=== PATIENT | male | born 1970 | race Caucasian/White ===

== ENCOUNTER 2016-07-26 12:25 | Emergency (ER) | payer SELFPAY ==
[2016-07-26 11:58] LABS: BASOPHILS 0.3 %; BASOPHILS ABSOLUTE 0.04 10/3/uL (0.0-0.16); EOSINOPHILS ABSOLUTE 0.38 10/3/uL (0.0-0.53); HEMATOCRIT 43.8 % (40.0-51.0); HEMOGLOBIN 14.9 g/dL (13.6-17.8); IMMATURE GRANULOCYTES 0.2 %; IMMATURE GRANULOCYTES ABSOLUTE 0.03 10/3/uL (0.0-0.11); LYMPHOCYTES 18.4 %; MANUAL DIFF NO %; MEAN CORPUSCULAR HEMOGLOB 29.3 pg (26.0-34.0); MEAN CORPUSCULAR VOLUME 86.2 fL (80-100); MEAN PLATELET VOLUME 9.3 fL (9.2-13.0); MONOCYTES 5.4 %; MONOCYTES ABSOLUTE 0.68 10/3/uL (0.21-1.20); NEUTROPHILS 72.7 %; NEUTROPHILS ABSOLUTE 9.08 10/3/uL (2.02-8.40); PLATELET COUNT 224 10/3/uL (150-400); RBC DISTRIBUTION WIDTH 13.4 % (12.0-16.0); RED CELL COUNT 5.08 10/6/uL (4.7-6.1); WHITE BLOOD CELLS 12.5 10/3/uL (4.5-10.5)
[2016-07-26 12:10] LABS: BUN (BLOOD UREA NITROGEN) 15 MG/DL (6-23); CHLORIDE, SERUM 105 MMOL/L (96-112); CO2 (CARBON DIOXIDE) 30 MMOL/L (24-34); CREATININE 1.02 MG/DL (0.70-1.30); GFR AFRICAN AMERICAN 102 ML/MIN (>=60); GFR NON AFRICAN AMERICAN 88 ML/MIN (>=60); GLUCOSE, SERUM 123 MG/DL (60-99); POTASSIUM, SERUM 4.2 MMOL/L (3.5-5.3); SODIUM, SERUM 141 MMOL/L (135-148)
[2016-07-26 12:48] LABS: SED RATE 16 MM/HR (0-15)
[2016-07-30] MEDS ORDERED: VENTOLIN HFA INH (01:39)
[2016-07-30] MEDS ORDERED: DULERA 200 MCG/13 GM INH (01:40)
[2016-07-30] MEDS ORDERED: ULTRAM50 PO (01:41)
[2016-07-30] MEDS ORDERED: VIBRATAB100 MG PO (01:42)
[2016-07-30] MEDS ORDERED: IBU600 PO (01:42)
[2016-07-30] MEDS ORDERED: FLONASE NAS (01:42)
[2016-08-03] MEDS ORDERED: DSS PO (12:58)
[2016-08-03] MEDS ORDERED: NORCO1 TA1 PO ×2 (12:59→13:00)
[2016-08-03] MEDS ORDERED: BACDS PO (13:00)
[2017-01-19] MEDS ORDERED: DULERA 100 MCG/13 GM INH (11:58)
== END 2016-07-26 14:05 | disposition home or self-care (01) ==
LOC: ER 12:25
PROVIDERS: Nurse Practitioner
DX: L03.115 Cellulitis of right lower limb (principal); J45.909 Unspecified asthma, uncomplicated; L40.9 Psoriasis, unspecified
CPT/HCPCS: 73560-RT; 80048; 85025; 85652; 99284; J2550

== ENCOUNTER 2016-10-09 18:50 | Emergency (ER) | payer BC ==
[2016-10-09 18:20] LABS: BASOPHILS 0.1 %; BASOPHILS ABSOLUTE 0.02 10/3/uL (0.0-0.16); EOSINOPHILS 0.9 %; EOSINOPHILS ABSOLUTE 0.14 10/3/uL (0.0-0.53); HEMATOCRIT 41.9 % (40.0-51.0); HEMOGLOBIN 14.3 g/dL (13.6-17.8); IMMATURE GRANULOCYTES 0.3 %; IMMATURE GRANULOCYTES ABSOLUTE 0.04 10/3/uL (0.0-0.11); LYMPHOCYTES 6.2 %; LYMPHOCYTES ABSOLUTE 0.99 10/3/uL (0.67-4.30); MEAN CORPUS HGB CONC 34.1 g/dL (32.0-36.0); MEAN CORPUSCULAR HEMOGLOB 29.3 pg (26.0-34.0); MEAN CORPUSCULAR VOLUME 85.9 fL (80-100); MONOCYTES 4.8 %; MONOCYTES ABSOLUTE 0.76 10/3/uL (0.21-1.20); NEUTROPHILS 87.7 %; NEUTROPHILS ABSOLUTE 14.02 10/3/uL (2.02-8.40); PLATELET COUNT 197 10/3/uL (150-400); RBC DISTRIBUTION WIDTH 13.9 % (12.0-16.0); RED CELL COUNT 4.88 10/6/uL (4.7-6.1)
[2016-10-09 18:21] LABS: MANUAL DIFF NO %
[2016-10-09 18:36] LABS: BUN (BLOOD UREA NITROGEN) 20 MG/DL (6-23); CALCIUM, SERUM 7.9 MG/DL (8.5-10.4); CHEST PAIN PROFILE TAT 0 Hrs 21 Mins; CHLORIDE, SERUM 105 MMOL/L (96-112); CO2 (CARBON DIOXIDE) 29 MMOL/L (24-34); CREATININE 1.25 MG/DL (0.70-1.30); GFR AFRICAN AMERICAN 80 ML/MIN (>=60); GFR NON AFRICAN AMERICAN 69 ML/MIN (>=60); GLUCOSE, SERUM 138 MG/DL (60-99); SODIUM, SERUM 140 MMOL/L (135-148); TROPONIN I 0.03 NG/ML (<0.05)
[2016-10-09 18:37] LABS: INTERNATIONAL NORMAL RATI 1.1 UNITS (-); PARTIAL THROMBO TIME 30.1 SEC (22.5-37.2); PROTIME (NOT ORD) 14.5 SEC (12.0-14.5)
[~2016-10-09 18:50] MED LIST: BACDS PO; DSS PO; DULERA 200 MCG/13 GM INH; FLONASE NAS; IBU600 PO; NORCO1 TA1 PO; ULTRAM50 PO; VENTOLIN HFA INH; VIBRATAB100 MG PO
[2016-10-09 19:34] LABS: ALBUMIN 3.3 G/DL (3.5-5.0); DIRECT BILIRUBIN 0.1 MG/DL (0.0-0.4); INDIRECT BILIRUBIN(NOT ORDER) 0.5 MG/DL (0.1-0.9); SGOT(AST) 16 U/L (5-40); SGPT(ALT) 30 U/L (5-65); TOTAL BILIRUBIN 0.6 MG/DL (0-1.2); TOTAL PROTEIN 7.9 G/DL (6.0-8.5)
[2016-10-09 19:36] LABS: ALKALINE PHOSPHATASE 92 U/L (45-117); D-DIMER QUANTITATIVE 0.33 ug/mLFEU (< 0.50)
[2016-10-09] MEDS ORDERED: ADVIL PO (20:29)
[2016-10-09] MEDS ORDERED: VENTOLIN HFA INH (20:29)
[2016-10-09] MEDS ORDERED: SINUS PO (20:29)
[2016-10-09 22:27] LABS: TROPONIN I 0.03 NG/ML (<0.05)
[2016-10-09 22:28] LABS: LACTATE 1.4 MMOL/L (0.3-2.4)
[2016-10-10 00:07] LABS: PROCALCITONIN 0.31 ng/mL (<0.5)
[2017-01-19] MEDS ORDERED: DULERA 100 MCG/13 GM INH (11:58)
== END 2016-10-09 23:35 | disposition home or self-care (01) ==
LOC: ER 18:50
PROVIDERS: Hospitalist; Specialist
DX: J02.0 Streptococcal pharyngitis (principal); R07.9 Chest pain, unspecified; J45.909 Unspecified asthma, uncomplicated; Z79.899 Other long term (current) drug therapy
CPT/HCPCS: 71010; 80048; 80076; 83605; 83690; 83735; 84145; 84484; 85025; 85379; 85610; 85730; 87040; 87880; 93005; 96374; 96375; 99285; A9270-GY; J0561; J2405